=== PATIENT | female | born 1975 | race Asian ===

== ENCOUNTER 2018-10-16 22:13 | Emergency (ER) | payer BC, OTHER ==
[~2018-10-16] VITALS: Ht 165.1 cm; Wt 87.0 kg
--- NOTE | 2018-10-16 22:29 | NUR ---
ENGAGEMENT QUALITY CONSULTANT: NIL WHEN CALLED FOR ROOM
--- NOTE | 2018-10-16 22:45 | NUR ---
FIRST CONTACT WITH PT. PT HERE STAITNG THAT SHE HAD SUDDEN ONSET LOWER ABD PAIN AND BODY ACHES WHILE WALKING TONIGHT WELL BODY ACHES. PT ALSO STATES THAT SHE MAY BE SHE TOOK PREG TEST 2 MONTHS AGO AND IT WAS POSITIVE, HAS HAD NO CARE SINCE. LNMP 07/05/18 G 4(?) P 1 A 2. DENIES DISCHARGE OR BLEEDING. PT'S AOX4. RESPS EVEN AND UNLABORED. EDMD AT BEDSIDE TO EVALUATE AT THIS TIME.
[2018-10-16 22:58] LABS: BASOPHILS % (AUTO) 1 % (0-1); EOSINOPHILS # (AUTO) 0.19 x10^3/uL (0-0.4); EOSINOPHILS % (AUTO) 2 % (1-7); LYMPHOCYTES # (AUTO) 2.34 x10^3/uL (1-3.4); LYMPHOCYTES % (AUTO) 19 % (22-44); MD NO; MEAN CORPUSCULAR HEMOGLOBIN 31.9 pg (27.0-34.8); MEAN CORPUSCULAR HGB CONC 33.5 g/dL (32.4-35.8); MEAN CORPUSCULAR VOLUME 95.3 fL (80-100); MEAN PLATELET VOLUME 6.4 fL (7.4-10.4); MONOCYTES # (AUTO) 0.74 x10^3/uL (0.2-0.8); MONOCYTES % (AUTO) 6 % (2-9); NEUTROPHILS # (AUTO) 9.04 x10^3/uL (1.8-6.8); NEUTROPHILS % (AUTO) 73 % (42-75); PLATELET COUNT 312 x10^3/uL (130-400); RED BLOOD COUNT 4.18 x10^6/uL (3.82-5.3); RED CELL DISTRIBUTION WIDTH 13.8 % (9.6-15.2)
[2018-10-16 22:59] LABS: CULTURE INDICATED? YES; MICROSCOPIC INDICATED
[2018-10-16 23:14] LABS: CALCIUM 8.6 mg/dL (8.5-10.1)
[2018-10-16 23:29] LABS: ALANINE AMINOTRANSFERASE 19 U/L (12-78); ALKALINE PHOSPHATASE 51 U/L (45-117); ANION GAP 7 mmol/L (5-15); BILIRUBIN,TOTAL 0.3 mg/dL (0.2-1.0); CHLORIDE 108 mmol/L (98-107); CREATININE 0.57 mg/dL (0.55-1.02); TOTAL PROTEIN 6.7 g/dL (6.4-8.2)
--- NOTE | 2018-10-16 23:42 | NUR ---
pt resting in [facility]. pt's aox4. resps even and unlabored. bp/spo2 monitors in place. call light within reach.
--- NOTE | 2018-10-17 00:08 | NUR ---
pt amb to br and back to room with steady gait.
--- NOTE | 2018-10-17 00:24 | NUR ---
Note karlee in EDM - 10/17/18 at 0035 by SELINA pt given dc instructions. pt's aox4. resps even and unlabored. pt amb to dc with steady gait. no acute distress at dc.
[2018-10-17 00:29] VITALS: BP 125/75
--- NOTE | 2018-10-17 00:40 | NUR ---
pt given dc instructions and script. pt educated regarding dc medication. pt's aox4. resps even and unlabored. pt amb to dc with steady gait. no acute distress at dc.
== END 2018-10-17 00:40 | disposition home or self-care (01) ==
LOC: ED 23:42
DX: O23.42 Unspecified infection of urinary tract in pregnancy, second trimester (principal); Z3A.18 18 weeks gestation of pregnancy; O99.332 Smoking (tobacco) complicating pregnancy, second trimester
CPT/HCPCS: 36415; 76815; 80053; 81001; 81025; 83690; 84702; 85025; 87077; 87086; 87186; 99284